=== PATIENT | male | born 1995 | race Caucasian/White ===

== ENCOUNTER 2017-03-17 11:07 | Emergency (ER) | payer MEDICAID ==
[~2017-03-17] VITALS: Ht 170.2 cm; Wt 100.0 kg
[2017-03-17 11:48] LABS: BASOPHILS # (AUTO) 0.03 K/uL (0.00-0.20); BASOPHILS % (AUTO) 0.6 % (0.0-2.0); EOSINOPHILS # (AUTO) 0.12 K/uL (0.00-0.70); EOSINOPHILS % (AUTO) 2.06 % (1.0-6.0); HEMATOCRIT 43.3 % (41-53); HEMOGLOBIN 14.4 g/dL (13.5-17.5); LYMPHOCYTES # (AUTO) 1.8 K/uL (1.0-4.8); LYMPHOCYTES % (AUTO) 30.3 % (22.0-44.0); MEAN CORPUSCULAR HEMOGLOBIN 29.1 pg (26.0-34.0); MEAN CORPUSCULAR HGB CONC 33.1 G/dL (31.0-37.0); MEAN CORPUSCULAR VOLUME 88 fL (80-100); MONOCYTES # (AUTO) 0.6 K/uL (0.1-1.0); NEUTROPHILS # (AUTO) 3.4 K/uL (1.8-7.7); PLATELET COUNT (AUTO) 301 K/uL (150-450); RED BLOOD CELL COUNT(AUTO) 4.94 MIL/uL (4.50-5.90); RED CELL DISTRIBUTION WIDTH 13.3 % (11.5-14.5); WHITE BLOOD COUNT (AUTO) 5.9 K/uL (4.5-11.0)
[2017-03-17 12:44] LABS: APPEARANCE,URINE CLEAR (CLEAR); GLUCOSE, URINE (UA) NEGATIVE (NEGATIVE); KETONES,URINE NEGATIVE (NEGATIVE); LEUKOCYTE ESTERASE ,URINE NEGATIVE (NEGATIVE); OCCULT BLOOD,URINE SMALL (NEGATIVE); PROTEIN,URINE NEGATIVE (NEGATIVE)
[2017-03-17 12:57] LABS: RBC,URINE 0-2 /HPF (0-2); WBC,URINE 0-2 /HPF (0-5)
[2017-03-17] MEDS ORDERED: AZITHROMYCIN 250 MG TABLET PO ONE (13:30)
[2017-03-17] MEDS ORDERED: CefTRIAXone SODIUM 1 GM/VIAL IM ONE (13:30)
[2017-03-17] MEDS ORDERED: LIDOCAINE HCL/PF 1% 2 ML VIAL IM ONE (13:30)
[2017-03-17 13:39] VITALS: BP 114/67
[2017-03-20 20:06] LABS: GC DNA N.A. AMPLIFY Negative (Negative)
== END 2017-03-17 13:40 | disposition home or self-care (01) ==
LOC: EMS 11:11
DX: N50.819 Testicular pain, unspecified (principal); R10.30 Lower abdominal pain, unspecified
CPT/HCPCS: 36415; 76870; 81001; 85025; 87491; 87591; 96372; 99285; J0696; J3490

== ENCOUNTER 2017-07-27 09:41 | Emergency (ER) | payer MEDICAID ==
[~2017-07-27] VITALS: Ht 170.2 cm; Wt 104.5 kg
[2017-07-27 12:30] VITALS: BP 130/76
== END 2017-07-27 13:54 | disposition home or self-care (01) ==
LOC: EMS 09:42
DX: R51 Headache (principal)
CPT/HCPCS: 70450; 99284